=== PATIENT | male | born 1965 | race Two or more races ===

== ENCOUNTER → 2024-02-10 | Outpatient (CLI) | payer MEDICAID, SELFPAY ==
--- NOTE | 2024-02-10 07:30 | XR_ITS ---
MRI shoulder, right, without contrast. Date and time: January 14, 2024 0755 hours Comparison April 11, 2023 INDICATIONS: Right shoulder pain beginning December 2022 loss of function joint clicking weakness stiffness Technique: Multiple axial, sagittal and coronal sections of the shoulder have been obtained. Siemens high-resolution 1.5 Jazmine MRI scanner is utilized. Axial fat-suppressed sections, TR 2350, TE 18 T2-weighted coronal fat-saturated images, TR 3500, TE 7100 T1-weighted coronal images, TR 500, TE 15 T2-weighted sagittal fat-saturated images, TR 3500, TE 57 T1-weighted sagittal sections, TR 504, TE 13. Findings: Supraspinatus tendon insertion is abnormal, 4 mm partial-thickness articular surface tear, coronal image 13. Infraspinatus tendon insertion is intact. Subscapularis insertion is intact. Subscapularis bursa is not seen. Long head of the biceps is in the bicipital groove. No definite tear of the biceps superior labral anchor is seen. Retraction of the musculotendinous junction of the rotator cuff is not seen . Tendinosis pattern is moderate. Distance between the acromium and humeral head is 5.6 mm Atrophy of the supraspinatus muscle is severe. Atrophy of the infraspinatus muscle is severe. Sagittal sections demonstrate a horizontal acromion. Acromioclavicular joint demonstrates moderate osteoarthritis. Osacromiale is not identified. Posterior 27 mm labral cyst. Bony glenoid fossa on the sagittal sections does not demonstrate osseous defect. Occult fracture or area of avascular necrosis is not seen. Acromioclavicular joint separation is not visible. Defect in the posterolateral margin of the humeral head is not seen Impression: 4 mm partial-thickness articular surface tear supraspinatous Moderate rotator cuff tendinosis 27 mm posterior superior labral cyst
--- NOTE | 2024-02-10 08:00 | XR_ITS ---
Examination: MRI cervical spine without intravenous contrast Date and time of exam: February 10, 2024 0743 hours INDICATIONS: Neck pain radiating to the right shoulder beginning December 2022 Technique: Multiple axial and sagittal sections of the cervical spine to been obtained. T2 weighted sagittal sections, TR 3, 270, TE 117 T1-weighted sagittal sections, TR 500, TE 11 T1-weighted axial sections, TR 607, TE 12, axial sections TR 18, TE 27 and T2 weighted transverse sections, TR 3920, TE 122. Findings: Adequate alignment cervical vertebral bodies No cervical fracture Intact odontoid Diffuse cervical disc desiccation No localized enlargement cervical cord C2-C3 advanced left neural foraminal stenosis C3-C4 bilateral uncinate process hypertrophy, advanced bilateral neural foraminal stenosis with 2 mm central subarticular osteophyte disc complex C4-C5 moderate right neural foraminal stenosis C5-C6 4 mm central disc protrusion Advanced bilateral neural foraminal stenosis C6-C7 moderate left neural foraminal stenosis C7-T1 no disc protrusion IMPRESSION: C2-C3 advanced left neural foraminal stenosis C3-C4 advanced bilateral neural foraminal stenosis C4-C5 moderate right neural foraminal stenosis C5-C6 4 mm central disc protrusion with advanced bilateral neural foraminal stenosis C6-C7 moderate left neural foraminal stenosis
== END | disposition home or self-care (01) ==
PROVIDERS: PCP Physician Assistant; Referring Provider Orthopaedic Surgery; Visit Provider Orthopaedic Surgery
DX: M75.101 Unspecified rotator cuff tear or rupture of right shoulder, not specified as traumatic (principal); M25.811 Other specified joint disorders, right shoulder; M67.813 Other specified disorders of tendon, right shoulder; M48.02 Spinal stenosis, cervical region; M50.222 Other cervical disc displacement at C5-C6 level
CPT/HCPCS: 72141; 73221

== ENCOUNTER 2024-03-18 01:00 | Emergency (ER) | payer MEDICAID, SELFPAY ==
[2024-03-18 01:01] VITALS: BMI 38.3
[2024-03-18 01:42] VITALS: BP 181/100; BP 183/118; PULSE 84; RESP 19; TEMP 37.2; O2SAT 96
--- NOTE | 2024-03-18 01:48 | PD.EDRME ---
Rapid Medical Screening Exam E Arrival date/time: 03/18/24 01:00 58-year-old male past medical history of diabetes and high blood pressure presents emergency department complaining of headache, neck pain, and dizziness. Chief Complaint: Headache Time Seen by Provider: 03/18/24 01:05 Vital signs: Vital Signs Temperature 98.9 F 03/18/24 01:42 Pulse Rate 84 03/18/24 01:42 Respiratory Rate 19 03/18/24 01:42 Blood Pressure 181/100 H 03/18/24 01:42 Pulse Oximetry (%) 96 03/18/24 01:42 Oxygen Delivery Method Room Air 03/18/24 01:42 Vital signs reviewed by provider: Yes
--- NOTE | 2024-03-18 01:49 | EKG_ITS ---
[facility] Test Date: 2024-03-18 Pat Name: KRISTEN MATTHEWS Department: Room: - Gender: Male [employer]: : 1965 Requested By: Randal Mendoza ([facility]) Order Number: [id number] Reading MD: Randal Mendoza ([facility]) Measurements Intervals [place] Rate: 77 P: 47 [place]: 165 QRS: -7 QRSD: 87 T: 27 QT: 357 QTc: 406 Interpretive Statements SINUS RHYTHM Compared to ECG 04/21/2023 23:39:20 No significant changes /store/S0/[id number].pdf
[2024-03-18 02:21] LABS: Basophils % (Auto) 0 % (0-2.5); Eosinophils # (Auto) 0.1 Thou/mm3 (0.0-0.5); Eosinophils % (Auto) 2 % (0-10); Hematocrit 39.5 % (41.0-53.0); Hemoglobin 12.9 g/dL (13.5-16.0); Immature Granulocytes % (Auto) 0 % (0-0); Immature Granulocytes Auto 0.01 Thou/mm3 (0.00-0.00); Lymphocytes # (Auto) 1.4 Thou/mm3 (1.0-4.8); Lymphocytes % (Auto) 25 % (10-50); Mean Corpuscular HGB Conc 32.7 g/dl (31.0-37.0); Mean Corpuscular Hemoglobin 26.5 pg (25.0-35.0); Mean Corpuscular Volume 81 fL (80-100); Monocytes # (Auto) 0.5 Thou/mm3 (0.0-0.8); Monocytes % (Auto) 9 % (0-12); Neutrophils # (Auto) 3.5 Thou/mm3 (1.8-7.7); Neutrophils % (Auto) 63 % (37-80); Nucleated Red Blood Cell % 0 /100 WBC (0); Platelet Count 202 Thou/mm3 (140-440); RDW Standard Deviation 44.6 fL (35.1-43.9); Red Blood Count 4.87 Miln/mm3 (4.50-5.90); White Blood Count 5.6 Thou/mm3 (3.8-10.6)
[2024-03-18 02:36] LABS: Amphetamine/Methamp Scrn,U Negative (Negative); Barbiturate Screen,Urine Negative (Negative); Benzodiazepines Screen,Urine Negative (Negative); Benzoylecgonine Screen, Ur Negative (Negative); Fentanyl Screen,Urine Negative (Negative); Opiate Screen,Urine Negative (Negative); THC Screen,Urine Negative (Negative)
[2024-03-18 02:38] LABS: B-Type Natriuretic Peptide < 20 pg/mL (0-100)
[2024-03-18 02:40] LABS: Alanine Aminotransferase 45 U/L (10-49); Albumin, Serum 4.4 gm/dL (3.4-4.8); Albumin/Globulin Ratio 1.8 (1.2-2.2); Alkaline Phosphatase 88 U/L (46-116); Anion Gap 7 (7-16); Aspartate Amino Transferase 27 U/L (0-34); BUN/Creatinine Ratio 14 Ratio (12-20); Bilirubin,Total 0.5 mg/dL (0.3-1.2); Blood Urea Nitrogen 11 mg/dL (9-23); Carbon Dioxide 30.2 mMol/L (20.0-31.0); Chloride 92 mMol/L (98-107); Creatinine (Component) 0.8 mg/dL (0.6-1.3); Estimated Creatinine Clearance 116.8 mL/min (>60); Globulin 2.5 gm/dL (2.3-3.5); Glucose 103 mg/dL (74-106); Osmolality,Calculated 258 (275-295); Potassium 4.1 mMol/L (3.4-5.1); Sodium 129 mMol/L (136-145); Total Protein 6.9 gm/dL (5.7-8.2); Troponin I < 0.020 ng/mL (0.0-0.045); eGFR > 60 See Note
[2024-03-18 02:56] VITALS: BP 160/93; PULSE 80
[2024-03-18] MEDS: hydrALAZINE HCL 25 MG TABLET PO (02:56)
[2024-03-18] MEDS: HYDROcodone/APAP 5/325 TABLET 1 TAB PO (02:56)
--- NOTE | 2024-03-18 03:35 | PC.NURSE ---
Pt ambulated to RM #1 with c/o high B/P. and headache x 1 wk.
[2024-03-18 03:48] VITALS: BP 166/92; PULSE 69; RESP 18; O2SAT 96
[2024-03-18 04:22] VITALS: BP 144/80; PULSE 65; RESP 18; O2SAT 96
--- NOTE | 2024-04-10 05:36 | PD.EDADULT ---
ED General RME/HPI General Chief complaint: Headache Stated complaint: HEADACHE X 3 DAYS HX HTN Time Seen by Provider: 03/18/24 01:05 Arrival date/time: 03/18/24 01:00 Limitations: no limitations RME / HPI RME / HPI narrative: 03/18/24 01:00 58-year-old male past medical history of diabetes and high blood pressure presents emergency department complaining of headache, neck pain, and dizziness. Related Data Home Medications ?Medication ?Instructions ?Recorded ?Confirmed atorvastatin 20 mg tablet 20 mg PO QPM 07/28/20 09/13/23 carvedilol 6.25 mg tablet 6.25 mg PO BID 07/28/20 09/13/23 hydrochlorothiazide 25 mg tablet 25 mg PO QAM 07/28/20 09/13/23 lisinopril 40 mg tablet 40 mg PO QDAY 07/28/20 09/13/23 omeprazole 40 mg capsule,delayed 40 mg PO QDAY 07/28/20 09/13/23 release Previous Rx's ?Medication ?Instructions ?Recorded benzonatate 100 mg capsule 100 mg PO TID PRN cough #20 caps 04/22/23 Allergies Allergy/AdvReac Type Severity Reaction Status Date / Time No Known Allergies Allergy Verified 03/18/24 01:04 Review of Systems Review of Systems Systems Reviewed: All systems reviewed, normal except as documented ED Exam General Limitations: Present no limitations General appearance: Present alert and in no apparent distress Head Head exam: Present atraumatic Eye Eye exam: Present normal appearance, PERRL and EOMI ENT ENT exam: Present normal exam, normal oropharynx and mucous membranes moist Neck Neck exam: Present normal inspection, full ROM and trachea midline Chest Chest inspection: Present normal inspection and symmetric chest wall rise Respiratory Respiratory exam: Present normal lung sounds bilaterally Cardiovascular Cardiovascular exam: Present regular rate, normal rhythm and normal heart sounds Abdominal Exam Abdominal exam: Present soft and normal bowel sounds Extremities Exam Extremities exam: Present normal inspection and full ROM Back Exam Back exam: Present normal inspection and full ROM Neurological Exam Neurological exam: Present alert, oriented X3 and CN II-XII intact Psychiatric Psychiatric exam: Present normal affect and normal mood Skin Skin exam: Present warm, dry, intact and normal color Course Orders Category Date Time Status EKG (ED ONLY) *Do not use* NOW Care 03/18/24 01:49 Completed EKG (ED Only) Stat Exams 03/18/24 01:49 Draft BNP [B-Type Natriuretic Peptide] Stat Lab 03/18/24 02:00 Completed CBC Stat Lab 03/18/24 02:00 Completed Comprehensive Metabolic Panel Stat Lab 03/18/24 02:00 Completed Drug Screen,Urine Stat Lab 03/18/24 02:09 Completed Troponin I Stat Lab 03/18/24 02:00 Completed HYDROcodone*/APAP 5/325 [[place] 5/325] Med 03/18/24 01:49 Discontinued 1 tab PO X1 ONE hydrALAZINE HCL [Apresoline] Med 03/18/24 01:50 Discontinued 25 mg PO X1 ONE Vital Signs Vital signs: Vital Signs Temperature 98.9 F 03/18/24 01:42 Pulse Rate 84 03/18/24 01:42 Respiratory Rate 19 03/18/24 01:42 Blood Pressure 181/100 H 03/18/24 01:42 Pulse Oximetry (%) 96 03/18/24 01:42 Oxygen Delivery Method Room Air 03/18/24 01:42 MDM Medications Medication administrations:: Medication Administration History Discontinued Medications Hydrocodone Bitart/Acetaminophen (Hydrocodone/Apap 5/325 Tablet) 1 tab PO X1 ONE Stop: 03/18/24 01:50 Last Admin: 03/18/24 02:56 Dose: 1 tab Documented By: BOY Hydralazine HCl (Hydralazine Hcl 25 Mg Tablet) 25 mg PO X1 ONE Stop: 03/18/24 01:51 Last Admin: 03/18/24 02:56 Dose: 25 mg Documented By: BOY Medical Decision Making Lab Data 03/18/24 02:00 03/18/24 02:00 Labs: Lab Results 03/18/24 03/18/24 Range/Units 02:00 02:09 WBC 5.6 (3.8-10.6) Thou/mm3 RBC 4.87 (4.50-5.90) Miln/mm3 Hgb 12.9 L (13.5-16.0) g/dL Hct 39.5 L (41.0-53.0) % MCV 81 (80-100) fL MCH 26.5 (25.0-35.0) pg MCHC 32.7 (31.0-37.0) g/dl RDW Std Deviation 44.6 H (35.1-43.9) fL Plt Count 202 (140-440) Thou/mm3 Neut % (Auto) 63 (37-80) % Lymph % (Auto) 25 (10-50) % Whitman % (Auto) 9 (0-12) % Eos % (Auto) 2 (0-10) % Baso % (Auto) 0 (0-2.5) % Neut # (Auto) 3.5 (1.8-7.7) Thou/mm3 Lymph # (Auto) 1.4 (1.0-4.8) Thou/mm3 Whitman # (Auto) 0.5 (0.0-0.8) Thou/mm3 Eos # (Auto) 0.1 (0.0-0.5) Thou/mm3 Baso # (Auto) 0.0 (0.0-0.2) Thou/mm3 Immature Gran # (Auto) 0.01 H (0.00-0.00) Thou/mm3 Absolute Nucleated RBC 0.00 (0.00-0.00) Thou/mm3 Immature Gran % 0 (0-0) % Nucleated RBC % 0 (0) /100 WBC Sodium 129 L (136-145) mMol/L Potassium 4.1 (3.4-5.1) mMol/L Chloride 92 L (98-107) mMol/L Carbon Dioxide 30.2 (20.0-31.0) mMol/L Anion Gap 7 (7-16) BUN 11 (9-23) mg/dL Creatinine 0.8 (0.6-1.3) mg/dL Estim Creat Clear Calc 116.8 (>60) mL/min eGFR > 60 (60 - ) See Note BUN/Creatinine Ratio 14 (12-20) Ratio Glucose 103 (74-106) mg/dL Calculated Osmolality 258 L (275-295) Calcium 9.0 (8.3-10.6) mg/dL Corrected Calcium 9.0 (8.5-10.1) mg/dL Total Bilirubin 0.5 (0.3-1.2) mg/dL AST 27 (0-34) U/L ALT 45 (10-49) U/L Alkaline Phosphatase 88 (46-116) U/L Troponin I < 0.020 (0.0-0.045) ng/mL B-Natriuretic Peptide < 20 (0-100) pg/mL Total Protein 6.9 (5.7-8.2) gm/dL Albumin 4.4 (3.4-4.8) gm/dL Globulin 2.5 (2.3-3.5) gm/dL Albumin/Globulin Ratio 1.8 (1.2-2.2) Urine Opiates Screen Negative (Negative) Urine Fentanyl Screen Negative (Negative) Ur Barbiturates Screen Negative (Negative) U Amphetamin/Meth Scrn Negative (Negative) U Benzodiazepines Scrn Negative (Negative) U Cocaine Metab Screen Negative (Negative) U Marijuana (THC) Screen Negative (Negative) Discharge Plan Plan Patient Disposition: HOME (Self Care) Patient condition on transfer: Stable Prescriptions/Referrals Prescriptions/Med Rec: No Action carvedilol 6.25 mg Tablet 6.25 mg PO BID atorvastatin 20 mg Tablet 20 mg PO QPM omeprazole 40 mg Capsule,Delayed Release(Dr/Ec) 40 mg PO QDAY hydrochlorothiazide 25 mg Tablet 25 mg PO QAM lisinopril 40 mg Tablet 40 mg PO QDAY benzonatate 100 mg capsule 100 mg PO TID PRN (Reason: cough) Qty: 20 0RF Referrals: Jennifer Mcdonald PA-C [Primary Care Provider] - In 1 week Problem List Clinical Impression: Hypertension Patient/Caregiver Discharge Instructions Education Materials: Hypertension Dc, Blood Pressure Check Steps Additional Instructions: Take your blood pressure medicine as prescribed by your primary care physician. Please take your blood pressure every day at the same time with the same cuff and write it down. Follow-up in 1 week with your primary care physician with a list of your blood pressure. Return to emergency department before your appointment if you are having chest pain, worsening headache, nausea vomiting, any vision changes, or any other concerns. Your medical symptoms Print Language: Cuban Stand Alone Forms: [employer] Info., Patient Portal Info Letter
== END 2024-03-18 04:32 | disposition home or self-care (01) ==
PROVIDERS: Emergency Provider Emergency Medicine; PCP Physician Assistant
DX: I10 Essential (primary) hypertension (principal); E11.9 Type 2 diabetes mellitus without complications
CPT/HCPCS: 36415; 80053; 80307; 83880; 84484; 85025; 93005; 99283; A9270